=== PATIENT | female | born 1975 | race Caucasian/White ===

== ENCOUNTER 2019-08-23 14:26 | Outpatient (CLI) | payer OTHER, SELFPAY ==
--- NOTE | 2019-08-23 14:33 | MM_ITS ---
WS: [id number] BILATERAL DIGITAL SCREENING MAMMOGRAPHY WITH CAD CLINICAL INFORMATION: SCREENING HISTORY: Screening mammogram. No current complaints. COMPARISON: June 29, 2018 TECHNIQUE: Bilateral CC and MLO views. FINDINGS: Scattered fibroglandular densities bilaterally. No suspicious focal mass, asymmetry, calcifications, or architectural distortion. No evidence of malignancy. MM/[place] [id number] IMPRESSION: BI-RADS: 1-Negative FOLLOW UP: 1 Year Follow-up Recommend return to annual screening mammography.
== END 2019-08-23 14:27 | disposition home or self-care (01) ==
PROVIDERS: Family Provider Family Medicine; PCP Plastic Surgery; Visit Provider Plastic Surgery
DX: Z12.31 Encounter for screening mammogram for malignant neoplasm of breast (principal)
CPT/HCPCS: 77067

== ENCOUNTER 2021-01-29 06:02 | Outpatient (CLI) | payer OTHER, SELFPAY ==
[2021-01-29 06:33] VITALS: BMI 31.3
[2021-01-29 06:36] VITALS: BP 126/93; PULSE 84; RESP 18; TEMP 37.3; O2SAT 97
[2021-01-29 06:53] VITALS: BP 125/87; PULSE 71; RESP 16; O2SAT 96
--- NOTE | 2021-01-29 06:54 | AMB.MCA ---
Patient Information Symptom onset date: 01/25/21 COVID 19 common symptoms: positive fever(s), chills, cough, non-productive cough, dyspnea, fatigue, body aches, headache(s), loss of sense of smell and/or taste, nasal congestion and nausea; negative vomiting or diarrhea COVID 19 other sytmptoms: negative requiring oxygen Severity: mild Treatment prior to arrival: none [facility] COVID test results: No Data to Display outside results available, scanned Criteria/Plan Inclusion/Exclusion Criteria weight >/= 40kg and symptom onset </= 10 days ago has chronic kidney disease (Patient has chronic kidney disease secondary to an episode of severe rhabdo) not requiring hospitalization, not requiring oxygen (if not chronically on oxygen) and no increase oxygen requirement (if chronically on oxygen) Patient education patient/family/caregiver received/reviewed fact sheet, Emergency Use Authorization/unapproved drug status discussed with patient/family/caregiver, alternatives to this treatment discussed with patient/family/caregiver, risks and benefits of medication reviewed with patient/family/caregiver, patient/family/caregiver given opportunity for questions, which were answered and patient consents to receiving Monoclonal Antibody Treatment Plan for treatment Meets criteria for Monoclonal Antibody infusion Ordering Monoclonal Antibody infusion for today Other information Reviewed with the patient and reviewed her chart she was originally listed as qualifying for asthma however that does not meet the criteria set forth for inclusion for monoclonal antibody infusion however she does have some mild chronic kidney disease secondary to previous episode of rhabdomyolysis for which she was hospitalized in the ICU several years ago. Based on that qualifier we will go ahead and infuse reviewed with the patient she still wishes to proceed
[2021-01-29 08:08] VITALS: BP 121/83; PULSE 67; RESP 15; O2SAT 97
[2021-01-29 08:21] VITALS: BP 121/82; PULSE 73; RESP 15; O2SAT 97
[2021-01-29 09:16] VITALS: BP 112/85; PULSE 73; RESP 16; O2SAT 97
--- NOTE | 2021-02-02 11:09 | DCPLANNER ---
patient relations manager had message that patient received the monoclonal antibody infusion. patient relations manager called to check on patient. She stated that she is feeling a little better. That before the infusion she had a lot of aches, joint pain, she had a cough, headache, ran a fever was dizzy. Patient stated that after the infusion that the joint pain has gotten better, and overall she feels like she has improved. Patient stated that she still has a headache, she is still dizzy, and she is still running a low grade fever. Patient did say that her oxygen was doing good that it was running 93-95 %.
== END 2021-01-29 09:17 | disposition home or self-care (01) ==
LOC: ER 06:06
PROVIDERS: PCP Family Medicine; Visit Provider Emergency Medicine
DX: U07.1 COVID-19 (principal)
CPT/HCPCS: 96365

== ENCOUNTER 2021-08-30 12:00 | Outpatient (CLI) | payer OTHER, SELFPAY | END 2021-08-30 12:01 | disposition home or self-care (01) | LOC: SLEEP 08-31 08:47 | PROVIDERS: PCP Family Medicine; Visit Provider Nurse Practitioner Family | DX: R53.83 Other fatigue (principal); G47.10 Hypersomnia, unspecified | CPT/HCPCS: G0399 ==

== ENCOUNTER 2021-10-20 10:16 | Outpatient (CLI) | payer OTHER, SELFPAY ==
--- NOTE | 2021-10-20 10:23 | MM_ITS ---
WS: [id number] VIEWS: MLO and CC views both breasts. 3D digital tomosynthesis is also included in this exam. Comparison made with prior exam of 08/23/2019. Findings: There was no sign of mass, architectural distortion or suspicious calcification in either breast. Fa tty MM/[place] [id number] Impression: BI-RADS: 2-Benign FOLLOW-UP: 1 Year Follow-up This mammogram was also analyzed by the Computer Aided Detection System R2 Imag e Steam Heating Installer.
== END 2021-10-20 10:17 | disposition home or self-care (01) ==
LOC: RADSHAW 10:19
PROVIDERS: PCP Family Medicine; Visit Provider Nurse Practitioner Family
DX: Z12.31 Encounter for screening mammogram for malignant neoplasm of breast (principal)
CPT/HCPCS: 77063; 77067

== ENCOUNTER 2022-01-17 10:38 | Outpatient (CLI) | payer OTHER, SELFPAY ==
--- NOTE | 2022-01-17 10:52 | XR_ITS ---
WS: [id number] LEFT RIBS, MULTIPLE VIEWS WITH PA CHEST HISTORY: PLEURODYNIA COMPARISON: 09/27/2012 Lungs and mediastinum: Lungs are clear. No pneumonia. No pneumothorax. Ribs: No rib fractures or bone destruction identified. XR/XR ribs LT mn 3V w CXR1V [id number] IMPRESSION: No LEFT rib fractures identified.
== END 2022-01-17 10:39 | disposition home or self-care (01) ==
PROVIDERS: PCP Family Medicine; Visit Provider Nurse Practitioner Family
DX: R07.81 Pleurodynia (principal)
CPT/HCPCS: 71101

== ENCOUNTER 2022-01-18 13:57 | Outpatient (CLI) | payer OTHER, SELFPAY ==
--- NOTE | 2022-01-18 14:08 | CT_ITS ---
WS: [id number] CT CHEST TECHNIQUE: Noncontrast CT of the chest with coronal and sagittal reformatted images. CLINICAL INFORMATION: STERNUM PAIN,INJURY,CHEST/OTHER CHEST PAIN COMPARISON: None. DLP: 733.[address] scans at [facility] use at least one of these dose optimization techniques: automated e xposure control; mA and/or kV adjustment per patient size (includes targeted exams where dose is matc hed to clinical indication); or iterative reconstruction. FINDINGS: Both lungs are well aerated. No acute pulmonary infiltrates. No focal pneumonia or pleural fluid. No pneumothorax. No pericardial effusion. No mediastinal hematoma. Normal thyroid. Normal anterior chest wall. Sternum appears normal. No visualized fractures. Normal manubrium. Tiny subpleural nodule LEFT lower lobe measuring 3 mm. Slight minimal compression superior endplate T1. This is age indeterminant but most likely chronic. M ild thoracic curve. Normal caliber thoracic aorta. No mediastinal or hilar lymphadenopathy. No axilla ry lymphadenopathy. Normal GE junction. Cholecystectomy. Adrenal glands are normal. Fatty atrophy of the pancreas. CT/CT chest wo con [id number] IMPRESSION: 1. Sternum is normal in appearance. Normal manubrium. No visualized fractures. 2. Both lungs are well aerated. No pneumothorax. No acute pulmonary infiltrate s. 3. Slight minimal compression superior endplate T1. This is age indeterminant but most likely chronic. Correlation for upper thoracic or lower neck pain. Tho racic spine otherwise appears normal. 4. Prior cholecystectomy. 5. Tiny subpleural nodule LEFT lower lobe measuring 3 mm.
== END 2022-01-18 13:58 | disposition home or self-care (01) ==
LOC: RAD 13:58
PROVIDERS: PCP Family Medicine; Visit Provider Nurse Practitioner Family
DX: R07.89 Other chest pain (principal); S29.9XXA Unspecified injury of thorax, initial encounter; X58.XXXA Exposure to other specified factors, initial encounter
CPT/HCPCS: 71250

== ENCOUNTER 2022-11-23 11:16 | Outpatient (CLI) | payer OTHER, SELFPAY ==
--- NOTE | 2022-11-23 11:23 | MM_ITS ---
WS: [id number] Bilateral screening 3D tomosynthesis digital mammogram, 11/23/2022 Clinical Data: SCREENING Comparison: 10/20/2021, 08/23/2019, 06/29/2018, 06/07/2018. Findings: The breast parenchymal pattern shows fibroglandular tissue. The tissue density has increased anterior ly in both breasts and on the MLO view of the right breast there is a spiculated region. However no c orresponding area is noted on the right CC view. No clustered calcifications are seen. There are no s econdary signs of carcinoma. MM/[place] [id number] Impression: 1. Increasing density in the anterior tissue of both breasts with a spiculated region in the superior aspect of the right breast on the MLO view 2. Recommend right breast ML view and right breast ultrasound of the superior aspect of the right breast BIRADS: 0-Incomplete: Need additional imaging evaluation FOLLOW UP: See Report The CAD program checker was used.
== END 2022-11-23 11:17 | disposition home or self-care (01) ==
LOC: RAD 11:18
PROVIDERS: PCP Family Medicine; Visit Provider Nurse Practitioner Family
DX: Z12.31 Encounter for screening mammogram for malignant neoplasm of breast (principal)
CPT/HCPCS: 77063; 77067

== ENCOUNTER 2022-12-02 09:31 | Outpatient (CLI) | payer OTHER, SELFPAY ==
--- NOTE | 2022-12-02 09:44 | US_ITS ---
WS: [id number] Right breast ultrasound, 12/02/2022 Clinical Data: ABNORMAL MAMMO Comparison: Right breast and a gram, 12/02/2022 Findings: The upper outer quadrant of the right breast at the 11:00 and 10:00 position showed only normal breas t tissue. There are no cysts or masses. US/US breast RT limited* [id number] Impression: 1. Asymmetric breast tissue in the upper outer quadrant of the right breast. 2. Recommend return to annual screening mammograms. BIRADS: 2-Benign FOLLOW UP: 1 Year Follow-up
--- NOTE | 2022-12-02 09:44 | MM_ITS ---
WS: [email or web address] Right breast diagnostic 3D tomosynthesis digital mammogram, 12/02/2022 Clinical Data: ABNORMAL MAMMO Comparison: 11/23/2022, 10/20/2021, 08/23/2019, 06/07/2018. Findings: The right MLO spot and right ML demonstrate increased tissue in the upper outer quadrant of the right breast. No spiculated masses or clustered calcifications are seen. There are no secondary signs of c arcinoma. MM/[place] [id number] Impression: 1. Increased asymmetric breast tissue in the upper outer quadrant right breast. 2. Right breast ultrasound. BIRADS: 2-Benign FOLLOW UP: 1 Year Follow-up The CAD negative checker was used.
== END 2022-12-02 09:32 | disposition home or self-care (01) ==
PROVIDERS: PCP Family Medicine; Visit Provider Nurse Practitioner Family
DX: N64.89 Other specified disorders of breast (principal); R92.8 Other abnormal and inconclusive findings on diagnostic imaging of breast
CPT/HCPCS: 76642; 77061; G0279

== ENCOUNTER 2023-03-14 08:27 | Outpatient (CLI) | payer OTHER, SELFPAY ==
--- NOTE | 2023-03-14 | ECG_ITS ---
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 Interpretive Statements NAME OF STUDY: EXERCISE SESTAMIBI STRESS TEST INDICATION: Chest Pressure Baseline blood pressure of 143/99 mm Hg, heart rate 101 beats per minute and oxygen saturation 96%. EKG showed sinus tachycardia with nonspecific T wave inversion in lead V3. The patient exercised for 3 minutes and 20 seconds on a standard Gabriel protocol. Patient attained a maximum heart rate of 154 beats per minute(89% of the maximum predicted heart rate) with a blood pressure at the peak exercise of 160/99 mm Hg oxygen saturation of 98%. The EKG at the peak exercise revealed sinus tachycardia at 154 bpm with no significant ST-T wave changes. Patient did not have any chest pain or any significant arrhythmis with the exercise During the recovery phase, there were no new changes. Study was terminated due to maximal effort. Blood pressure at the end of the recovery phase was 137/90 mm Hg with a heart rate of 92 beats per minute and oxygen saturation of 98%. CONCLUSION: 1. Normal EKG response to treadmill exercise. 2. No exercise-induced chest pain or cardiac arrhythmia 3. Decreased exercise tolerance, attained a maximum of 7 METs. 4. Baseline hypertension with normal response to exercise. 5. Exagerrated heart rate response to exercise. 6. Perfusion scan will be documented separately. Electronically Signed On 03-22-2023 16:30:21 CDT by Juana Sanchez M.D. [id number]
[2023-03-14 08:54] VITALS: BMI 33.6
--- NOTE | 2023-03-14 08:58 | NMCV_ITS ---
NM jose perf SPECT r/s* [id number] Lissy Srivastava Age: 47 Gender: F : 1975 Exam Date: 03/14/2023 09:43 Ordering Phys: Jansesa Tapia MD Technologist: SERENA Koo Exam Location: [facility] Indications: Chest Pain STRESS TEST [facility] IMAGE PROTOCOL Rest/Stress 1 Exercise Day Radiopharmaceutical Dose (mCi) Administration Site Administered by Rest: Tc-99m 10.7 IV SERENA Koo Sestamibi Stress:Tc-99m 32.9 IV SERENA Cai Sestamibi Rest: 14-Mar-2023 60 Discovery 630 Stress: 14-Mar-2023 30 Discovery 630 Radiopharmaceutical was injected at 87 % maximum heart rate. Images obtained in supine and prone position. SPECT RESULTS Technical Quality: Excellent Raw Data Analysis: Normal, Breast attenuation Image Corrections: No attenuation or motion correction applied Summed Stress Score: 0 Summed Rest Score: 0 Summed Difference Score: 0 PERFUSION FINDINGS Fairly uniform myocardial tracer uptake. No significant perfusion abnormalities. FUNCTIONAL RESULTS (calculated via Gated SPECT) Stress Image LV EF (%): 74 Stress EDV (mL):69 TID: 0.91 Stress ESV (mL):18 FUNCTIONAL FINDINGS: Segmental wall motion analysis revealing no gross wall motion abnormalities IMPRESSIONS 1. Unremarkable Myocardial perfusion imaging. 2. Normal LV ejection fraction of 74%. 3. LV wall motion analysis revealing no gross wall motion abnormalities. 4. Normal LV volume Low probability for coronary ischemia, based on the above findings No similar previous studies are available for comparison Dr Cori Comer MD [facility] (Electronically Signed) Final Date: 14 March 2023 17:12 S
[2023-03-14 11:05] VITALS: BP 137/99; PULSE 91
== END 2023-03-14 08:28 | disposition home or self-care (01) ==
LOC: CDL 08:28
PROVIDERS: PCP Family Medicine; Visit Provider Family Medicine
DX: R07.9 Chest pain, unspecified (principal)
CPT/HCPCS: 36415; 78452; 93017; A9500

== ENCOUNTER 2024-06-19 09:32 | Outpatient (CLI) | payer OTHER, SELFPAY ==
[2024-06-19 10:25] LABS: Alanine Aminotransferase 13 U/L (0-33); Albumin Level 4.5 g/dL (3.5-5.2); Alkaline Phosphatase 46 U/L (35-105); Anion Gap 13.2 (5-19); Aspartate Amino Transferase 16 U/L (0-32); Blood Urea Nitrogen 19 mg/dL (6-20); Calcium 9.7 mg/dL (8.5-10.5); Carbon Dioxide 27 mmol/L (22-29); Chloride 103 mmol/L (98-107); Globulin 2.4 g/dL (1.3-4.6); Glomerular Filtration Rate 88.9 mL/min (90-130); Glucose 98 mg/dL (65-115); Lipase 53 U/L (13-60); Osmolality Calculated 290 mOsm/kg (285-295); Potassium 4.2 mmol/L (3.5-5.1); Sodium 139 mmol/L (136-145); Total Bilirubin 0.6 mg/dL (0.15-1.2); Total Protein 6.9 g/dL (6.6-8.7)
[2024-06-19 10:28] LABS: Troponin T (5th) Once < 6 ng/L (0-10)
== END 2024-06-19 09:33 | disposition home or self-care (01) ==
LOC: LAB 09:33
PROVIDERS: PCP Family Medicine; Visit Provider Nurse Practitioner Family
DX: R07.9 Chest pain, unspecified (principal); R14.2 Eructation
CPT/HCPCS: 36415; 80053; 83690; 84484

== ENCOUNTER 2024-08-10 18:33 | Emergency (ER) | payer OTHER, SELFPAY ==
[2024-08-10] VITALS (10 sets, daily range): BP systolic 102–142; BP diastolic 73–85; PULSE 66–92; RESP 16–22; TEMP 36.8; O2SAT 94–100; BMI 26.2
--- NOTE | 2024-08-10 18:38 | ECG_ITS ---
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
--- NOTE | 2024-08-10 18:51 | XRR_ITS ---
PROCEDURE INFORMATION: Exam: XR Chest Exam date and time: 08/10/2024 7:17 PM Age: 48 years old Clinical indication: Pain; Chest pressure; Additional info: Chest pain TECHNIQUE: Imaging protocol: Radiologic exam of the chest. Views: 1 view. COMPARISON: CT chest [facility] [id number] 01/18/2022 2:36 PM FINDINGS: Lungs: Unremarkable. No consolidation. Pleural spaces: Unremarkable. No pleural effusion. No pneumothorax. Heart/Mediastinum: Unremarkable. No cardiomegaly. Bones/joints: Unremarkable. XR/XR chest 1V portable [id number] IMPRESSION: Normal
--- NOTE | 2024-08-10 19:05 | ED_ITS ---
HPI - Chest Pain 2 General: Chief Complaint: Chest Pain Stated Complaint: chest pressure n/ dizzy Time Seen by Provider: 08/10/24 18:50 Source: patient and family Mode of arrival: ambulatory Limitations: no limitations History of Present Illness: Prescribed chest pain/discomfort, heavy, 6 out of 10 but upon observation believes she may be trying to downplay it. Patient appears to be in mild to moderate distress. Mildly tachycardic, chest nontender, lungs clear, heart sounds normal. Related Data On Oral Contraceptives: No Previous Rx's Medication Instructions Recorded baclofen 10 mg tablet 10 mg PO BID PRN Esophageal spasms 08/10/24 #20 tabs sucralfate 1 gram tablet (Carafate) 1 g PO QID 30 days #120 tabs 08/10/24 Allergies Allergy/AdvReac Type Severity Reaction Status Date / Time celecoxib [From Celebrex] Allergy ADR-Gastrointestinal Verified 08/10/24 18:46 Upset NSAIDS (Non-Steroidal Allergy Unknown Verified 08/10/24 18:46 Anti-Inflamma propoxyphene [From Darvon] Allergy ALGY-Anaphy Verified 08/10/24 18:46 laxis Review of Systems 2 General: Reports: 10 or more systems reviewed and unremarkable except in HPI and below Physical Exam 2 Const: COMMON NORMALS: no acute distress, average body habitus, patient oriented x3, healthy appearing, alert and well nourished EXAM LIMITATIONS: no altered mental status GENERAL APPEARANCE: cooperative, well kempt, well developed and in distress (mild to moderate) ORIENTATION/CONSCIOUSNESS: Yes awake, Yes oriented to person, Yes oriented to place and Yes oriented to time HENMT: COMMON NORMALS: normocephalic, atraumatic, external ears normal and moist oral mucous membranes HEAD & SCALP: normocephalic and atraumatic E XTERNAL EAR: Yes external ears normal Eye: COMMON NORMALS: Equal, round and reactive pupils present, EOMs intact bilaterally and conjunctivae normal CONJUNCTIVA: Yes conjunctivae normal P UPIL: Yes Equal, round and reactive pupils present Neck/C-Spine: COMMON NORMALS: full ROM, no lymphadenopathy and supple Chest: COMMONS NORMALS: normal inspection of the chest and normal palpation of entire chest wall CHEST: Yes Symmetrical chest wall rise Resp: COMMON NORMALS: normal respiratory effort, No retractions, No use of accessory muscles and clear to auscultation bilaterally AUSCULTATION: clear to auscultation bilaterally Cardio: COMMON NORMALS: regular rhythm, S1 normal heart sound present, S2 normal heart sound present, No gallops present (Cardio), No clicks present (Cardio), No murmurs present (Cardio), No rub (Cardio) and Peripheral pulses 2+ throughout JUGULAR VENOUS DISTENTION: no JVD PALPATION: no thrill RATE: tachycardic RHYTHM: regular rhythm HEART SOUNDS: S1 normal heart sound present, S2 normal heart sound present and no murmurs PERIPHERAL PULSES: P eripheral pulses 2+ throughout and other (Radial pulses 2+ and symmetric) GI: COMMON NORMALS: Soft to palpation, non-tender and no masses INSPECTION: No abdominal distension PALPATION: Yes Soft to palpation, No Guarding due to palpation present (GI) and No Rebound tenderness present Extremity: COMMON NORMALS: normal to inspection, full ROM, capillary refill normal and no clubbing, cyanosis or edema Neuro: COMMON NORMALS: patient oriented x3 SENSORIUM/ORIENTATION: Yes alert, Yes oriented to person, Yes oriented to place and Yes oriented to time Psych: APPEARANCE: Yes well kempt Skin: COMMON NORMALS: no rashes or lesions noted, no wounds, turgor normal and no jaundice GENERAL SKIN EXAM: no rashes or lesions noted and turgor normal Course 2 ED course: Patient much improved, appears the large improvements were from nitro and then GI cocktail although morphine obviously did help with pain. Thankfully troponin is negative/normal x 2 D-dimer was elevated but CT was done and negative. Patient have a strong family history Reevaluation(s): Reevaluation #1: Repeat EKG due to artifact in the first 1. Second EKG is much clear and shows no signs of any ST changes. Patient also had nitro applied and reports pain has improved some since then. Still appears to be in some mild discomfort but obviously much improved. Time: 20:05 Vital Signs: Vital signs: Vital Signs Temperature 98.3 F 08/10/24 18:42 Pulse Rate 66 08/10/24 23:17 Respiratory Rate 18 08/10/24 23:17 Blood Pressure 111/79 08/10/24 23:17 Pulse Oximetry 94 08/10/24 23:17 Oxygen Delivery Me thod Room Air 08/10/24 23:17 MDM - Chest Pain Medical Decision Making Patient was in with severe chest pain, given nitro got some relief, morphine as well. D-dimer coming elevated, CT was performed personally reviewed and I see no acute abnormality, radiology read concurred. Troponins are stable x 2 and less than 10. Patient has a history of reflux, I suspect this could be possibly an esophageal spasm she has been having intermittent pain for the past 2 weeks just the pain was much worse and much more severe tonight. Has a history of reflux on Protonix. 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 Differential Diagnosis Likely acute myocardial infarction; Unlikely acute respiratory failure, cardiac arrest or sudden cardiac Medical Records I reviewed the patient's medical records. Lab Data I reviewed the patient's lab results. 08/10/24 19:24 08/10/24 19:24 Radiology Impressions Chest X-Ray 08/10/24 18:51 IMPRESSION: Normal Chest CTA 08/10/24 20:26 IMPRESSION: 1. No pulmonary embolism or pneumonia. 2. No significant chest findings Laboratory Results WBC 11.72 10^3/uL (3.29-11.43) H 08/10/24 19:24 RBC 4.48 10^6/uL (3.85-5.65) 08/10/24 19:24 Hgb 13.30 g/dL (11.27-16.99) 08/10/24 19:24 Hct 41.0 % (36-47) 08/10/24 19:24 MCV 91.5 fl (85-98) 08/10/24 19:24 MCH 29.7 pg (27-33) 08/10/24 19:24 MCHC 32.4 g/dL (30-55) 08/10/24 19:24 RDW 12.2 % (12.1-15.1) 08/10/24 19:24 Plt Count 461 10^3/cmm (157-399) H 08/10/24 19:24 MPV 9.8 fL (7.4-10.4) 08/10/24 19:24 Neut % (Auto) 78.5 % 08/10/24 19:24 Lymph % (Auto) 17.3 % 08/10/24 19:24 [place] % (Auto) 3.0 % 08/10/24 19:24 Eos % (Auto) 0.5 % 08/10/24 19:24 Baso % (Auto) 0.5 % 08/10/24 19:24 Neut # (Auto) 9.20 10^3/uL (1.8-7.7) H 08/10/24 19:24 Lymph # (Auto) 2.0 10^3/uL (0.8-4.8) 08/10/24 19:24 [place] # (Auto) 0.4 10^3/uL (0.2-0.9) 08/10/24 19:24 Eos # (Auto) 0.1 10^3/uL (0.0-0.8) 08/10/24 19:24 Baso # (Auto) 0.1 10^3/uL (0.0-0.1) 08/10/24 19:24 Nucleated RBC % (auto) 0 % 08/10/24 19:24 Nucleated RBCs # 0.0 /100WBC 08/10/24 19:24 D-Dimer 1.82 ug/mLFEU (0-0.59) H 08/10/24 19:24 Sodium 142 mmol/L (136-145) 08/10/24 19:24 Potassium 4.3 mmol/L (3.5-5.1) 08/10/24 19:24 Chloride 105 mmol/L (98-107) 08/10/24 19:24 Carbon Dioxide 25 mmol/L (22-29) 08/10/24 19:24 Anion Gap 16.3 (5-19) 08/10/24 19:24 BUN 16 mg/dL (6-20) 08/10/24 19:24 Creatinine 0.8 mg/dL (0.5-0.9) 08/10/24 19:24 GFR Calculation 76.2 mL/min (90-130) L 08/10/24 19:24 Glucose 132 mg/dL (65-115) H 08/10/24 19:24 Calculated Osmolality 297 mOsm/kg (285-295) H 08/10/24 19:24 Calcium 10.3 mg/dL (8.5-10.5) 08/10/24 19:24 Total Bilirubin 0.2 mg/dL (0.15-1.2) 08/10/24 19:24 AST 20 U/L (0-32) 08/10/24 19:24 ALT 20 U/L (0-33) 08/10/24 19:24 Alkaline Phosphatase 61 U/L (35-105) 08/10/24 19:24 Troponin T Baseline 7 ng/L (0-10) 08/10/24 19:24 Troponin T 120 Minute 6.00 ng/L (0-10) 08/10/24 21:43 Delta Troponin T -1.00 ABS# (0-10) L 08/10/24 21:43 NT-Pro-B Natriuret Pep 87 pg/mL (0-125) 08/10/24 19:24 Total Protein 7.3 g/dL (6.6-8.7) 08/10/24 19:24 Albumin 4.8 g/dL (3.5-5.2) 08/10/24 19:24 Globulin 2.5 g/dL (1.3-4.6) 08/10/24 19:24 All radiology interpretation(s) finalized by discharge ED provider radiology interpretation(s): as above Clincial Decision Support The following clinical decision support tools were used to aid in care of the patient HEART Score -> History: Moderately Suspicious, EKG: Normal, Age: 45-64 yrs, Risk Factors: 1 or 2 Risk Factors, Troponin: Baseline Trop <16 ng/L. Resulting HEART Score: 3. Discharge Plan Discharge Patient Disposition: Home Clinical Impression: Esophageal spasm Chest pain Qualifiers: Chest pain type: unspecified Qualified Code(s): R07.9 - Chest pain, unspecified Condition: Stable Prescriptions: New baclofen 10 mg tablet 10 mg PO BID PRN (Reason: Esophageal spasms) Qty: 20 0RF sucralfate [Carafate] 1 gram tablet 1 g PO QID 30 Days Qty: 120 0RF Discharge Orders: Discharge ED (Routine); Ordered 08/10/24 Ordered By: Fazal Mcfarlane Referrals: Janessa Tapia MD [Primary Care Provider] - Discharge Diet: Usual diet Discharge Activity: Resume usual activity Patient Instructions: Chest Pain (ED), Esophageal Spasm (ED) Activity Restrictions/Additional Instructions: Speak with primary care and get H. pylori testing as soon as possible. If the above regimen does not control this, follow-up with GI. Coding Level of Care Code ED Right Of Way Buyer for Thierno Singh
[2024-08-10 19:31] LABS: Basophils # 0.1 10^3/uL (0.0-0.1); Basophils % 0.5 %; Eosinophils # 0.1 10^3/uL (0.0-0.8); Eosinophils % 0.5 %; Lymphocytes % 17.3 %; Mean Corpuscular HGB Conc 32.4 g/dL (30-55); Mean Corpuscular Hemoglobin 29.7 pg (27-33); Mean Corpuscular Volume 91.5 fl (85-98); Mean Platelet Volume 9.8 fL (7.4-10.4); Monocytes # 0.4 10^3/uL (0.2-0.9); Neutrophils % 78.5 %; Nucleated Red Blood Cells % 0 %; Platelet Count 461 10^3/cmm (157-399); Red Blood Count 4.48 10^6/uL (3.85-5.65); Red Cell Distribution Width 12.2 % (12.1-15.1); White Blood Count 11.72 10^3/uL (3.29-11.43)
--- NOTE | 2024-08-10 19:33 | ECG_ITS ---
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
[2024-08-10] MEDS: nitroglycerin 1 gm/inch oint Pkt 0.5 INCH TOPICAL (19:37)
[2024-08-10] MEDS: ondansetron 2 mg/ML SDV 2 mL 4 MG IVP ×2 (19:37→21:15)
[2024-08-10 19:55] LABS: Troponin(5th) Baseline 7 ng/L (0-10)
[2024-08-10 20:04] LABS: Alanine Aminotransferase 20 U/L (0-33); Albumin Level 4.8 g/dL (3.5-5.2); Alkaline Phosphatase 61 U/L (35-105); Anion Gap 16.3 (5-19); Aspartate Amino Transferase 20 U/L (0-32); Blood Urea Nitrogen 16 mg/dL (6-20); Calcium 10.3 mg/dL (8.5-10.5); Carbon Dioxide 25 mmol/L (22-29); Chloride 105 mmol/L (98-107); Creatinine Clr Calc Pharmacy 96.7084; Globulin 2.5 g/dL (1.3-4.6); Glomerular Filtration Rate 76.2 mL/min (90-130); Glucose 132 mg/dL (65-115); NT Pro B Type Natriuretic Pept 87 pg/mL (0-125); Osmolality Calculated 297 mOsm/kg (285-295); Potassium 4.3 mmol/L (3.5-5.1); Sodium 142 mmol/L (136-145); Total Bilirubin 0.2 mg/dL (0.15-1.2); Total Protein 7.3 g/dL (6.6-8.7)
--- NOTE | 2024-08-10 20:17 | PC.NURSE ---
PT DOES VERBALIZE THAT HER CHEST PAIN IS BETTER AT THIS TIME SINCE GETTING THE NITRO PASTE. PT DOES STILL HAVE PAIN BETWEEN HER SHOULDER BLADES.
[2024-08-10 20:24] LABS: D Dimer 1.82 ug/mLFEU (0-0.59)
--- NOTE | 2024-08-10 20:26 | CTR_ITS ---
PROCEDURE INFORMATION: Exam: CTA Chest With Contrast Exam date and time: 08/10/2024 8:48 PM Age: 48 years old Clinical indication: Pain and abnormal findings; Abnormal diagnostic tests; Elevated d-dimer; Prior surgery; Surgery date: 6+ months; Surgery type: Gb; Patient HX: Central chest pain radiating to upper back. Dimer 1.82. History of mitral valve prolapse. ; Additional info: Severe chest pain, elevated d-dimer. TECHNIQUE: Imaging protocol: Computed tomographic angiography of the chest with contrast. Exam focused on the arteries. 3D rendering (Not supervised by radiologist): MIP and/or 3D reconstructed images were created by the technologist. Radiation optimization: All CT scans at this facility use at least one of these dose optimization techniques: automated exposure control; mA and/or kV adjustment per patient size (includes targeted exams where dose is matched to clinical indication); or iterative reconstruction. Contrast material: OMNI 350; Contrast volume: 65 ml; Contrast route: INTRAVENOUS (IV); COMPARISON: CT chest [facility] [id number] 01/18/2022 2:36 PM RADIATION DOSE METRICS: Total DLP (mGy-cm): 347.76 FINDINGS: Pulmonary arteries: Overall exam quality is good for looking at the pulmonary arteries. There are no intraluminal filling defects to indicate pulmonary embolism. Aorta: Unremarkable. No aortic aneurysm. No aortic dissection. Lungs: No pneumonia, mass or pleural effusion. Pleural spaces: No pleural effusion or pneumothorax. Heart: Unremarkable. No cardiomegaly. No pericardial effusion. Coronary arteries: No calcified plaque in the coronary arteries. Lymph nodes: Unremarkable. No enlarged lymph nodes. Gallbladder and biliary ducts: Incidental cholecystectomy. Bones/joints: Unremarkable. No acute fracture. Soft tissues: Unremarkable. CT/CT angio chest PE protcl [id number] IMPRESSION: 1. No pulmonary embolism or pneumonia. 2. No significant chest findings
[2024-08-10] MEDS: iohexol 350 mg/mL 500 mL Btl (per mL) IV (20:53)
[2024-08-10] MEDS: morphine 4 mg/mL SDV 1 mL IVP (21:15)
[2024-08-10] MEDS: lidocaine 2% viscous 15 ML, aluminum-mag hydrox-simethicon 30 ML, sucralfate oral liq 1 GM PO (22:53)
[2024-08-11 00:20] VITALS: BP 98/80; PULSE 69; RESP 16; O2SAT 94
== END 2024-08-11 00:12 | disposition home or self-care (01) ==
PROVIDERS: Emergency Provider Emergency Medicine; PCP Family Medicine
DX: K22.4 Dyskinesia of esophagus (principal); R07.9 Chest pain, unspecified
CPT/HCPCS: 36415; 71045; 71275; 80053; 83880; 84484; 85025; 85378; 93005; 96374; 96375; 96376; 99285; J2270; J2405

== ENCOUNTER 2024-10-29 07:36 | Outpatient (CLI) | payer OTHER, SELFPAY ==
--- NOTE | 2024-10-29 07:49 | NM_ITS ---
WS: [id number] NUCLEAR MEDICINE GASTRIC STUDY CLINICAL INFORMATION: ESOPAGEALSPASM,GASTROPARESIS TECHNIQUE: Following oral ingestion of cooked egg mixed with 1.1 mCi technetium 99m sulfur colloid, anterior images of the stomach were obtained over the course of 90 minutes. Activity curve was performed over the course of 90 minutes with linear regression analysis. COMPARISON: None. FINDINGS: Normal T1 half emptying 44% emptying at 60 minutes 58% emptying at 76 minutes NM/NM gastric emptying st [id number] IMPRESSION: T1 half emptying 65.35 minutes within normal limits *Normal median T1 half 90 minutes for solid egg meal (45-110 minutes). Delayed gastric retention is defined as 90% retained at 1 hour, 60% at 2 hour s, 30% at 3 hours, and 10% at 4 hours (normal percent gastric retention is 37-9 0% at 1 hour, 30-60% at 2 hours, and 0-10% at 4 hours).
== END 2024-10-29 07:37 | disposition home or self-care (01) ==
LOC: RAD 07:43
PROVIDERS: PCP Family Medicine; Visit Provider Family Medicine
DX: K22.4 Dyskinesia of esophagus (principal); K31.84 Gastroparesis
CPT/HCPCS: 78264; A9541

== ENCOUNTER 2024-11-15 08:11 | Outpatient (CLI) | payer OTHER, SELFPAY ==
--- NOTE | 2024-11-15 08:13 | MM_ITS ---
WS: [id number] BILATERAL SCREENING DIGITAL TOMOSYNTHESIS MAMMOGRAM WITH CAD HISTORY: SCREENING COMPARISON: 12/02/2022, 11/23/2022, 10/20/2021 Bilateral CC and MLO views with tomosynthesis and synthetic mammography submitted. Computer aided detection analyzed. Breast composition: There are scattered areas of fibroglandular density. No suspicious masses, microcalcifications or architectural distortion. MM/MM scr BI tomosynthesis [id number] IMPRESSION: BI-RADS: 2 - Benign. FOLLOW UP: 1 Year Follow-up
== END 2024-11-15 08:12 | disposition home or self-care (01) ==
PROVIDERS: PCP Family Medicine; Visit Provider Family Medicine
DX: Z12.31 Encounter for screening mammogram for malignant neoplasm of breast (principal); R92.323 Mammographic fibroglandular density, bilateral breasts
CPT/HCPCS: 77063; 77067

== ENCOUNTER → 2025-03-05 07:49 | Outpatient (BNVA) | payer OTHER, SELFPAY | PROVIDERS: PCP Nurse Practitioner Family; Visit Provider Physician Assistant | DX: G56.03 Carpal tunnel syndrome, bilateral upper limbs (principal) | CPT/HCPCS: 73130 ==

== ENCOUNTER 2025-03-27 09:15 | Day surgery (SDC) | payer OTHER, SELFPAY ==
[2025-03-27 09:28] VITALS: BMI 24.7
--- NOTE | 2025-03-27 09:33 | ANES.PREANE2 ---
Pre-Anesthetic Assessment Height/Weight: Height 1.75 m Operation Date: 03/27/25 10:10 Proposed Procedures p Carpal Tunnel Release(Bilateral) - Mike Xiong, DO Familial anesthetic complications: None Was Beta Sharif taken within 24 hours: N/A Was Clonidine taken within 24 hours: N/A Last intake: > 8hrs Social No alcohol and No tobacco Exam alert, oriented x 3, clear to auscultation bilaterally and regular rate & rhythm Airway Mallampati: Class II Dentition: false Neuropsych Chiari malforamtion repair- duraplasty, occasional prn use of acetazolamide, no issues recently Anesthetic Plan ASA status: 3 Anesthesia: MAC Risk of > 500 ml blood loss (7ml/kg in children): No Medications/Allergies Home Medications ?Medication ?Instructions ?Recorded ?Confirmed ?Last Taken ?Type acetazolamide 250 mg tablet 250 mg PO BID 03/05/25 03/26/25 03/26/25 History cyclobenzaprine 10 mg tablet 10 mg PO TID 03/05/25 03/26/25 03/12/25 History escitalopram oxalate 10 mg tablet 10 mg PO DAILY 03/05/25 03/26/25 03/26/25 History (Lexapro) pantoprazole 40 mg tablet,delayed 40 mg PO DAILY 03/05/25 03/26/25 03/26/25 History release (Protonix) promethazine 25 mg tablet 25 mg PO TID PRN vomiting 03/05/25 03/26/25 Unknown History propranolol 80 mg capsule,24 80 mg PO DAILY 03/05/25 03/26/25 03/26/25 History hr,extended release (Inderal LA) tramadol 50 mg tablet 50 mg PO Q6H PRN pain #20 tabs 03/27/25 Unknown Rx Allergies Allergy/AdvReac Type Severity Reaction Status Date / Time celecoxib (From Celebrex) Allergy ADR-Gastrointestinal Verified 03/05/25 08:14 Upset NSAIDS (Non-Steroidal Allergy Unknown Verified 03/05/25 08:14 Anti-Inflamma propoxyphene (From Darvon) Allergy ALGY-Anaphy Verified 03/05/25 08:14 laxis PFSH Anesthesia Social History Smoking and tobacco/nicotine status: never used tobacco/nicotine Data Anesthesia Cardiac Studies: Sestamibi Stress Test (Cardiology) 03/14/23
[2025-03-27] MEDS: acetaminophen 1,000 MG/100 ML PIGGYBACK 400 MG IV (10:05)
--- NOTE | 2025-03-27 10:31 | W.PM.OPSUD ---
Surgery/Procedure H&P Update DATE OF PROCEDURE: March 27, 2025 DATE H&P PERFORMED: 03/05/25 H&P UPDATE INFORMATION: I have reviewed H&P completed within last 30 days, I have examined patient prior to procedure and No changes to prior documentation PREOP DIAGNOSIS: Bilateral carpal tunnel syndrome PRIMARY INDICATION FOR PROCEDURE: Bilateral carpal tunnel syndrome PLANNED PROCEDURE: Operation Date: 03/27/25 10:10 Proposed Procedures p Carpal Tunnel Release(Bilateral) - Mike Xiong DO
[2025-03-27] MEDS: ceFAZolin 2,000 MG in sodium chloride 0.9% (plus) 50 ML 100 MG IV (10:41)
[2025-03-27] MEDS: lidocaine-epi 1% 20 mL INJ 10 ML INJECTION (11:18)
[2025-03-27] MEDS: ROPivacaine 0.5% SDV 30 mL 50 MG INJECTION (11:19)
--- NOTE | 2025-03-27 11:31 | P.OP_ITS ---
Operative Report Date of procedure: March 27, 2025 Surgeon: Mike Xiong DO General Production Worker: [place] Xiong PA-C: PA was necessary for assistance in this case with hand positioning to execute the procedure, retraction and protection of neurovascular structures as well as to assist with wound closure and dressing application. Procedure: Preop Diagnosis: Right Carpal Tunnel Syndrome Left carpal tunnel syndrome Post-op diagnosis: Same Procedure done: 1. Right carpal tunnel release 2. Left carpal tunnel release Surgeon: Mike Xiong DO Anesthesia: MAC (Local) Estimated blood loss: 5 mL Tourniquet time 7 minutes?left 7 minutes?right IV fluids: See anesthesia record Complications: None Findings: See operative report narrative Condition: stable Disposition: same day Brief History: Patient is a pleasant 49 year-old female with right and right carpal tunnel syndrome. Patient has been worked up in the outpatient setting findings and physical examination consistent with this. Patient nerve conduction studies consistent with carpal tunnel syndrome. We detailed out patient's risk benefits complication alternatives with surgical and nonsurgical treatment options. Through shared decision making, patient agrees to proceed with surgical intervention of the right carpal tunnel release and left carpal tunnel release. Patient understands and agrees with current plan. All questions answered. Patient elects to proceed with surgical intervention. Procedure: Patient seen and evaluated in the preoperative holding area. Consent was reviewed and signed with patient. Correct extremity was marked. Patient was seen evaluated by the anesthesia department once cleared for surgery was brought back to the operative suite. Patient was kept on [place] [employer] in supine position all bony prominences were well-padded patient properly secured to the bed. Right and left upper extremity was then placed onto an armboard. A nonsterile tourniquet was applied to the Right and left upper arm. Patient underwent anesthesia per the anesthesia department. Patient's Right and left upper extremity was then prepped and draped in standard orthopedic fashion. Final timeout performed. Patient received appropriate preoperative antibiotics. Under sterile aseptic technique patient received local anesthesia over the preplanned carpal tunnel incision site. Esmarch was used to exsanguinate the left upper extremity and tourniquet was insufflated to 250 mmHg. A standard mini open left carpal tunnel incision was made. Starting distally at [place]'s cardinal line in line with the fourth ray extending proximally distal to the wrist crease centered over the carpal tunnel. Sharp scalpel incision was made through skin and subcutaneous tissue. Self-retaining retractor was placed and the palmar fascia was identified. This was then split longitudinally and direct visualization of the transverse carpal ligament was then made. I then utilizing scalpel feathered through the transverse carpal ligament until I entered the floor of the transverse carpal tunnel ligament into the carpal tunnel. Next I switched to dissection scissors and completed my release of the transverse carpal ligament distally with care to protect the recurrent motor branch. I completely released into the palmar fat and until no entrapment was noted distally. Care was made to protect the superficial palmar arch during my distal dissection. Next I utilized a nasal speculum placed on top of the transverse carpal ligament and utilize this to retract the subcutaneous fat and tissue and under direct loupe magnification was able to identify the transverse carpal ligament. Next I then protected the contents of the carpal tunnel and subsequently utilizing dissection scissors under loupe magnification completely released the transverse carpal ligament proximally into the antebrachial fascia. Care was made to protect the palmar cutaneous branch by keeping my scissors curved ulnarly. Once completely released, I then placed my [place] and had appropriate decompression of the carpal tunnel proximally as well as distally. I then inspected the contents of the carpal tunnel which showed an hourglass shape of the median nerve showing its compression. No masses were noted. Tendons appeared healthy. Wound was then thoroughly irrigated. Tourniquet deflated. Hemostasis satisfactory with bipolar electrocautery. I then closed the incision with interrupted nylon stitches. Xeroform 4 x 4's and a bulky soft dressing was applied. Next I proceeded with the right carpal tunnel release. Under sterile aseptic technique patient received local anesthesia over the preplanned carpal tunnel incision site. Esmarch was used to exsanguinate the Right upper extremity and tourniquet was insufflated to 250 mmHg. A standard mini open Right carpal tunnel incision was made. Starting distally at [place]'s cardinal line in line with the fourth ray extending proximally distal to the wrist crease centered over the carpal tunnel. Sharp scalpel incision was made through skin and subcutaneous tissue. Self-retaining retractor was placed and the palmar fascia was identified. This was then split longitudinally and direct visualization of the transverse carpal ligament was then made. I then utilizing scalpel feathered through the transverse carpal ligament until I entered the floor of the transverse carpal tunnel ligament into the carpal tunnel. Next I switched to dissection scissors and completed my release of the transverse carpal ligament distally with care to protect the recurrent motor branch. I completely released into the palmar fat and until no entrapment was noted distally. Care was made to protect the superficial palmar arch during my distal dissection. Next I utilized a nasal speculum placed on top of the transverse carpal ligament and utilize this to retract the subcutaneous fat and tissue and under direct loupe magnification was able to identify the transverse carpal ligament. Next I then protected the contents of the carpal tunnel and subsequently utilizing dissection scissors under loupe magnification completely released the transverse carpal ligament proximally into the antebrachial fascia. Care was made to protect the palmar cutaneous branch by keeping my scissors curved ulnarly. Once completely released, I then placed my [place] and had appropriate decompression of the carpal tunnel proximally as well as distally. I then inspected the contents of the carpal tunnel which showed an hourglass shape of the median nerve showing its compression. No masses were noted. Tendons appeared healthy. Wound was then thoroughly irrigated. Tourniquet deflated. Hemostasis satisfactory with bipolar electrocautery. I then closed the incision with interrupted nylon stitches. Xeroform 4 x 4's and a bulky soft dressing was applied. Patient was then awakened from anesthesia and taken to PACU in stable condition. Patient tolerated procedure without complications. Disposition: Patient taken to PACU in stable condition recovering well. Dressing clean dry and intact. Patient will receive appropriate discharge instructions as well as pain medication postoperatively. Patient to follow-up with Ortho in the office in 2 weeks. They understand they may be weightbearing as tolerated to the right hand, limit heavy lifting. Patient should keep incision clean dry and intact. Patient understands if any questions or concerns may contact the office.
[2025-03-27 11:32] VITALS: BP 99/56; PULSE 59; RESP 16; TEMP 36.4; O2SAT 95
--- NOTE | 2025-03-27 11:33 | W.PM.BPON ---
Date of Procedure: [March 27, 2025] Surgeon: [Dr. Xiong DO] Nca Certified Concierge(s): [[place] Xiong PA-C] Procedure(s) performed: [Right carpal tunnel release Left carpal tunnel release] Findings of the procedure(s): [Left and right carpal tunnel syndrome. Procedure went well and is planned] Estimated blood loss: [5 mL] Specimen(s) removed: [N/A] Post-operative diagnosis: [Left and right carpal tunnel syndrome]
[2025-03-27 11:35] VITALS: BP 113/69; PULSE 59; RESP 16; O2SAT 97
--- NOTE | 2025-03-27 11:37 | PM.PACU ---
PACU note Narrative: Patient is a 49-year-old female just underwent a bilateral carpal tunnel release. Patient transferred to PACU in stable condition. Pain is well controlled. Dressing on hand is dry and in place. Patient's fingers are warm and well-perfused. Patient can wiggle fingers. normal cap refill under 2 seconds. Patient has normal elbow range of motion. sensation to fingers intact Exam: awake Disposition: discharged
[2025-03-27 11:40] VITALS: BP 129/78; RESP 16; O2SAT 97
[2025-03-27 11:45] VITALS: BP 131/69; PULSE 69; RESP 18; TEMP 36.4; O2SAT 97
[2025-03-27 11:55] VITALS: BP 149/104; PULSE 67; RESP 18; TEMP 36.4; O2SAT 99
[2025-03-27 12:05] VITALS: BP 148/100; PULSE 56; RESP 18; O2SAT 99
--- NOTE | 2025-03-27 12:35 | ANE.PACU2 ---
Inpatient post-anesthesia follow up: Airway intact: Yes Vital signs: Temperature 97.6 F Pulse Rate 56 Respiratory Rate 18 Blood Pressure 148/100 Pulse Oximetry 99 Oxygen Delivery Me thod Room Air Oxygen Flow Rate 6 Fraction of Inspir ed Oxygen Hydration adequate: No Nausea and vomiting: Yes Pain level: 1 Mental status: Baseline
== END 2025-03-27 12:35 | disposition home or self-care (01) ==
PROVIDERS: PCP Nurse Practitioner Family; Visit Provider Student in an Organized Health Care Education/Training Program
PROC: (CPT 64721; principal; 2025-03-27 10:00)
DX: G56.03 Carpal tunnel syndrome, bilateral upper limbs (principal); K21.9 Gastro-esophageal reflux disease without esophagitis
CPT/HCPCS: 64721; J0131; J0690; J2250; J2704; J2795; J3010; J7030; J9999